=== PATIENT | male | born 1980 | race African-American/Black ===

== ENCOUNTER 2018-09-16 19:32 | Emergency (ER) | payer SELFPAY ==
--- NOTE | 2018-09-16 19:37 | PDOC ---
Rapid Medical Evaluation Time Seen by Provider: 09/16/18 19:37 Medical Evaluation: Allergies Allergy/AdvReac Type Severity Reaction Status Date / Time No Known Allergies Allergy Verified 06/03/12 10:58 09/16/18 19:37 I performed a brief in-person evaluation of this patient. Chief complaint: Sunday accidental stick with needle used by friend to inject IV drugs. Pertinent physical exam findings: Alert, no distress. I have ordered the following: Exposure labs: Hep A/B, Hep C, HIV, CBC, LFTs. Patient will proceed to the ED for further evaluation. 09/16/18 19:41 Discharge Disposition - Diagnosis Needlestick injury due to hypodermic needle - Referrals - Patient Instructions - Post Discharge Activity
[2018-09-16 19:43] VITALS: BP 158/98; PULSE 73; TEMP 98; BMI 31.1
[2018-09-16 20:04] LABS: BASO % 0.9 % (0-2.0); EOS % 2.1 % (0-4.5); HEMATOCRIT 41.4 % (35.4-49); HEMOGLOBIN 14.7 GM/dL (11.7-16.9); LYMPH % 29.1 % (8-40); MCH 31.6 pg (25.7-33.7); MCHC 35.4 g/dl (32.0-35.9); MEAN CELL VOLUME 89.3 fl (80-96); MEAN PLT VOLUME 9.5 fl (7.5-11.1); MONO % 7.1 % (3.8-10.2); NEUT % 60.8 % (42.8-82.8); PLATELET COUNT 190 K/MM3 (134-434); RBC 4.64 M/mm3 (4.00-5.60); RDW 13.2 % (11.9-15.9); WHITE BLOOD COUNT 6.1 K/mm3 (4.0-10.0)
[2018-09-16] MEDS ORDERED: DIPHTH,PERTUSS(ACELL),TET 0.5 ML DISP.SYRIN IM ONE ×2 (20:24→20:27)
--- NOTE | 2018-09-16 20:25 | PDOC ---
History of Present Illness - General Chief Complaint: Blood/Body Fluid Exposure SJR Stated Complaint: PERSONAL Time Seen by Provider: 09/16/18 19:37 - History of Present Illness Initial Comments: 09/16/18 20:24 Healthy 37-year-old male without comorbidities presents for evaluation of the needlestick from a known heroin user. Needlestick happened 2 days ago while laying on the bed. He is not current on tetanus he has no comorbidities. Past History - Past Medical History Allergies/Adverse Reactions: Allergies Allergy/AdvReac Type Severity Reaction Status Date / Time No Known Allergies Allergy Verified 06/03/12 10:58 Home Medications: Ambulatory Orders NK [No Known Home Medication] 09/16/18 - Suicide/Smoking/Psychosocial Hx Smoking Status: No Smoking History: Never smoked Have you smoked in the past 12 months: No Number of Cigarettes Smoked Daily: 0 Information on smoking cessation initiated: No Hx Alcohol Use: No Drug/Substance Use Hx: No Review of Systems - Review of Systems Integumentary: Yes: See HPI *Physical Exam - Vital Signs Last Vital Signs Temp Pulse Resp BP Pulse Ox 98 F 73 20 158/98 100 09/16/18 19:38 09/16/18 19:38 09/16/18 19:38 09/16/18 19:38 09/16/18 19:38 - Physical Exam Comments: 09/16/18 20:24 HEAD: NC/AT EYES: Conjuntiva clear MS: Full ROM in all joints without edema; there is a small puncture wound on the dorsum of the left forearm with normal surrounding skin color and temperature NEUROLOGIC: No gross sensory or motor deficits, NVID SKIN: Normal color and temperature no lesions or rashes Moderate Sedation - Procedure Monitoring Vital Signs: Procedure Monitoring Vital Signs Temperature 98 F 09/16/18 19:38 Pulse Rate 73 09/16/18 19:38 Respiratory Rate 20 09/16/18 19:38 Blood Pressure 158/98 09/16/18 19:38 O2 Sat by Pulse Oximetry (%) 100 09/16/18 19:38 ED Treatment Course - LABORATORY CBC & Chemistry Diagram: 09/16/18 19:51 09/16/18 19:51 - ADDITIONAL ORDERS Additional order review: 09/16/18 19:51 RBC 4.64 MCV 89.3 MCHC 35.4 RDW 13.2 MPV 9.5 Neutrophils % 60.8 Lymphocytes % 29.1 Monocytes % 7.1 Eosinophils % 2.1 Basophils % 0.9 Medical Decision Making - Medical Decision Making 09/16/18 20:25 Discussed postexposure prophylaxis for needlestick injury. Tetanus was updated. Patient is in agreement with the plan. *DC/Admit/Observation/Transfer Diagnosis at time of Disposition: Needlestick injury due to hypodermic needle - Discharge Dispostion Disposition: HOME Condition at time of disposition: Stable Decision to Admit order: No - Referrals Referrals: Mireille Jeffrey MD [Staff Physician] - - Patient Instructions Printed Discharge Instructions: How to Handle Body Fluid Exposure -- Non- Healthcare Worker (At Home, [facility]gi Additional Instructions: Please take the antiretrovirals therapy as directed follow up with A FOR COMPLETION OF THE COURSE OF MEDICATION AND RETURN TO THE EMERGENCY ROOM SHOULD YOU HAVE ANY FURTHER ISSUES. - Post Discharge Activity Forms/Work/School Notes: Back to Work
[2018-09-16 20:35] LABS: ALBUMIN 4.6 g/dl (3.4-5.0); ALK PHOS 94 U/L (45-117); ANION GAP 6 MMOL/L (8-16); BILIRUBIN,TOTAL 0.8 mg/dL (0.2-1); BLOOD UREA NITROGEN 18 mg/dL (7-18); CALCIUM 9.3 mg/dL (8.5-10.1); CHLORIDE 103 mmol/L (98-107); CHOLESTEROL 164 mg/dL (50-200); CO2 29 mmol/L (21-32); CREATININE 1.2 mg/dL (0.55-1.3); GAMMA GLUTAMYL TRANSPEPTIDASE 27 U/L (5-85); GLUCOSE,RANDOM 107 mg/dL (74-106); PHOSPHOROUS 3.6 mg/dL (2.5-4.9); POTASSIUM 4.1 mmol/L (3.5-5.1); SGOT/AST 21 U/L (15-37); SGPT/ALT 32 U/L (13-61); SODIUM 138 mmol/L (136-145); TOT PROT 7.6 g/dl (6.4-8.2); TRIGLYCERIDES 77 mg/dL (0-150); URIC ACID 5.5 mg/dL (2.6-7.2)
[2018-09-16] MEDS ORDERED: HIV POST EXPOSURE PROPHYLAXIS KIT NR ONE (21:32)
[2018-09-16] MEDS ORDERED: HIV POST EXPOSURE PROPHYLAXIS KIT PO ONE (21:40)
[2018-09-16 23:20] LABS: LDH 222 U/L (87-246)
[2018-09-18 04:18] LABS: HBSAG SCREEN Negative (Negative); HEP B CORE AB, TOT Negative (Negative)
== END 2018-09-16 21:51 | disposition home or self-care (01) ==
LOC: JERFT 19:32
PROC: 3E0234Z Introduction of Serum, Toxoid and Vaccine into Muscle, Percutaneous Approach (ICD-10-PCS; principal; 2018-09-16)
DX: S51.832A Puncture wound without foreign body of left forearm, initial encounter (principal); W46.1XXA Contact with contaminated hypodermic needle, initial encounter; Y93.89 Activity, other specified; Y92.032 Bedroom in apartment as the place of occurrence of the external cause; Y99.8 Other external cause status
CPT/HCPCS: 36415; 80053; 82465; 82977; 83615; 84100; 84460; 84478; 84550; 85025; 86704; 86706; 86708; 86803; 87340; 87389; 90715; 99281-25

== ENCOUNTER 2018-10-17 15:48 | Emergency (ER) | payer OTHER ==
[2018-10-17 16:01] VITALS: BP 118/80; PULSE 70; TEMP 98; BMI 30.7
--- NOTE | 2018-10-17 16:10 | PDOC ---
Rapid Medical Evaluation Chief Complaint: RX Refill Time Seen by Provider: 10/17/18 15:57 Medical Evaluation: Allergies Allergy/AdvReac Type Severity Reaction Status Date / Time No Known Allergies Allergy Verified 10/17/18 16:01 Vital Signs Temp Pulse Resp BP Pulse Ox 98 F 70 19 118/80 100 10/17/18 15:59 10/17/18 15:59 10/17/18 15:59 10/17/18 15:59 10/17/18 15:59 10/17/18 16:07 Pt c/o: asking for PEP refill of meds, needlestick last month Pt on brief exam: vss, no acute findings Pt ordered for: none Pt to proceed to the ED Discharge Disposition - Diagnosis Encounter for medication refill - Referrals - Patient Instructions - Post Discharge Activity
--- NOTE | 2018-10-17 17:15 | PDOC ---
History of Present Illness - General Chief Complaint: RX Refill Stated Complaint: prescription refill Time Seen by Provider: 10/17/18 15:57 History Source: Patient Exam Limitations: No Limitations - History of Present Illness Initial Comments: 10/17/18 17:08 The patient is a 37-year-old male who presents to the emergency department today asking for refills of PEP Medication. He states he was seen here 1 month ago for dirty needle stick. He was taking the HIV medication as prophylaxis. He states that he ran out. Denies fevers, chills, bodyaches, weight loss, nausea, vomiting and diarrhea. Past History - Travel Traveled outside of the country in the last 30 days: No Close contact w/someone who was outside of country & ill: No - Past Medical History Allergies/Adverse Reactions: Allergies Allergy/AdvReac Type Severity Reaction Status Date / Time No Known Allergies Allergy Verified 10/17/18 16:01 Home Medications: Ambulatory Orders NK [No Known Home Medication] 09/16/18 COPD: No - Suicide/Smoking/Psychosocial Hx Smoking Status: No Smoking History: Never smoked Have you smoked in the past 12 months: No Number of Cigarettes Smoked Daily: 0 Information on smoking cessation initiated: No Hx Alcohol Use: No Drug/Substance Use Hx: No Review of Systems - Review of Systems Able to Perform ROS?: Yes Comments:: 10/17/18 17:09 CONSTITUTIONAL: Absent: fever, chills, diaphoresis, generalized weakness, malaise, loss of appetite HEENT: Absent: rhinorrhea, nasal congestion, throat pain, throat swelling, difficulty swallowing, mouth swelling, ear pain, eye pain, visual Changes CARDIOVASCULAR: Absent: chest pain, loss of consciousness, palpitations, irregular heart rate, peripheral edema RESPIRATORY: Absent: cough, shortness of breath, dyspnea with exertion, orthopnea, wheezing, stridor, hemoptysis GASTROINTESTINAL: Absent: abdominal pain, abdominal distension, nausea, vomiting, diarrhea, constipation, melena, hematochezia GENITOURINARY: Absent: dysuria, frequency, urgency, hesitancy, hematuria, flank pain, genital pain MUSCULOSKELETAL: Absent: myalgia, arthralgia, joint swelling SKIN: Absent: rash, itching, pallor HEMATOLOGIC/IMMUNOLOGIC: Absent: easy bleeding, easy bruising, lymphadenopathy, frequent infections ENDOCRINE: Absent: unexplained weight gain, unexplained weight loss, heat intolerance, cold intolerance NEUROLOGIC: Absent: headache, focal weakness or paresthesias, dizziness, unsteady gait, seizure, mental status changes, bladder or bowel incontinence PSYCHIATRIC: Absent: anxiety, depression, suicidal or homicidal ideation, hallucinations. Is the patient limited Korean proficient: No *Physical Exam - Vital Signs Last Vital Signs Temp Pulse Resp BP Pulse Ox 98 F 70 19 118/80 100 10/17/18 15:59 10/17/18 15:59 10/17/18 15:59 10/17/18 15:59 10/17/18 15:59 - Physical Exam Comments: 10/17/18 17:09 GENERAL: The patient is awake, alert, and fully oriented, in no acute distress. HEAD: Normal with no signs of trauma. EYES: Pupils equal, round and reactive to light, extraocular movements intact, sclera anicteric, conjunctiva clear. EXTREMITIES: Normal range of motion, no edema. NEUROLOGICAL: Normal speech, normal gait. PSYCH: Normal mood, normal affect. SKIN: Warm, Dry, normal turgor, no rashes or lesions noted. Moderate Sedation - Procedure Monitoring Vital Signs: Procedure Monitoring Vital Signs Temperature 98 F 10/17/18 15:59 Pulse Rate 70 10/17/18 15:59 Respiratory Rate 19 10/17/18 15:59 Blood Pressure 118/80 10/17/18 15:59 O2 Sat by Pulse Oximetry (%) 100 10/17/18 15:59 Medical Decision Making - Medical Decision Making 10/17/18 17:10 The patient is a 37-year-old male with no past medical history who presents to the ER for a refill of the pep medication. Patient is no active complaints at this time. No acute distress. Patient completed one month of post exposure prophylaxis medication. No need to refill at this time. Patient still has yet to follow-up with [facility] for HIV exposure. Discharge home with follow-up in the clinic. I discussed the physical exam findings, ancillary test results and final diagnoses with the patient. I answered all of the patient's questions. The patient was satisfied with the care received and felt comfortable with the discharge plan and treatment plan. The Patient agrees to follow up with the primary care physician/specialist within 24-72 hours. Return precautions were given. *DC/Admit/Observation/Transfer Diagnosis at time of Disposition: Encounter for medication refill - Discharge Dispostion Disposition: HOME Condition at time of disposition: Stable Decision to Admit order: No - Referrals - Patient Instructions Additional Instructions: Please follow up with the [facility] as soon as possible You already completed the month of prophylaxis medication; a refill is not necessary at this time Please follow up with the department of social work associate to apply for medicaid Return to the ED for any new or worsening symptoms Department of [employer] Central Office No reviews Department of [employer] [place], [place] [facility] at [address] [facility] [place] [address] - Post Discharge Activity
== END 2018-10-17 17:20 | disposition home or self-care (01) ==
LOC: JERFT 15:48
DX: Z76.0 Encounter for issue of repeat prescription (principal); W46.1XXD Contact with contaminated hypodermic needle, subsequent encounter
CPT/HCPCS: 99281-25